=== PATIENT | female | born 1990 | race Caucasian/White ===

== ENCOUNTER 2016-11-04 16:50 | Emergency (ER) | payer OTHER ==
--- NOTE | 2016-11-04 20:00 | ED CLINICAL REPORT ---
Clinical Report - Physicians/Mid Levels [facility] [address] [place] [address] 11/04/2016 16:52 Patient: BETINA HUTSON Arrived- By private vehicle. Historian- patient. HISTORY OF PRESENT ILLNESS Chief Complaint: SKIN RASH. This started several days ago; Wide spread scabby lesions on the face and arms. Pt admits to a history of methamphetamine abuse but sates that she has in the past. It is described as itchy, painful and burning. It has been located on the face, right upper extremity and right lower extremity. Not located on the left upper extremity. It has not been located over the left lower extremity. No cause has been identified. No recent medication or insect bite. Similar symptoms previously: None. REVIEW OF SYSTEMS No fever, chills, sore throat, cough or difficulty breathing. No hoarseness, abdominal pain, nausea, diarrhea or difficulty with urination. No vomiting. PAST HISTORY PCP: None Remote history of methamphetamine abuse. SOCIAL HISTORY Current every day smoker. ADDITIONAL NOTES The nursing notes have been reviewed. PHYSICAL EXAM Vital Signs: 11/04/2016 20:30 BP: 112/69. HR: 96. RR: 20. O2 saturation: 96%. Temp: 99 F. 11/04/2016 17:31 BP: 103/66. HR: 102. RR: 20. O2 saturation: 97%. Temp: 98.6 F. Pain level now: 8/10. ENT: Pharynx normal. CVS: Heart sounds normal. Respiratory: No respiratory distress. Breath sounds normal. Abdomen: Nontender. No organomegaly. Skin: (Pt has 25 to 50 superficial scabbing lesions on a small erythematous base. These are chiefly on the UE R and L with out many other lesions). CLINICAL IMPRESSION Impetigo Cellulitis. INSTRUCTIONS (IMPETIGO IS USUALLY A STREP INFECTION TREATED WITH A PENICILLIN CELLULITIS IS USUALLY IS STAPH AND IS TREATED WITH BACTRIM. BENADRYL FOR ITCH WASH, DRY AND APPLY BACITRACIN OINTMENT). Prescription Medications: Amoxicillin 500 mg tablets: Take 1 orally every 8 hours for 10 days. Dispense thirty (30). No refills. Bactrim DS 800 mg / 160 mg: Take 1 tablet orally every 12 hours for 7 days. Dispense fourteen (14). No refills. Substitution is permissible. BENADRYL 50 MG #20 1 PO Q6H PRN ITCH ONE TUBE OF BACITRACIN OINTMENT. APPLY TO AA BID. Understanding of the discharge instructions verbalized. Follow-up with: [facility], , , [address], , [place], [id number] Follow up in five days if not better. Call for an appointment. (Electronically signed by Juan Monique MD 11/06/2016 23:14)
--- NOTE | 2016-11-04 20:00 | ED CLINICAL REPORT ---
Clinical Report - Physicians/Mid Levels [facility] [address] [place] [address] 11/04/2016 16:52 Patient: BETINA HUTSON Arrived- By private vehicle. Historian- patient. HISTORY OF PRESENT ILLNESS Chief Complaint: SKIN RASH. This started several days ago; Wide spread scabby lesions on the face and arms. Pt admits to a history of methamphetamine abuse but sates that she has in the past. It is described as itchy, painful and burning. It has been located on the face, right upper extremity and right lower extremity. Not located on the left upper extremity. It has not been located over the left lower extremity. No cause has been identified. No recent medication or insect bite. Similar symptoms previously: None. REVIEW OF SYSTEMS No fever, chills, sore throat, cough or difficulty breathing. No hoarseness, abdominal pain, nausea, diarrhea or difficulty with urination. No vomiting. PAST HISTORY PCP: None Remote history of methamphetamine abuse. SOCIAL HISTORY Current every day smoker. ADDITIONAL NOTES The nursing notes have been reviewed. PHYSICAL EXAM Vital Signs: 11/04/2016 20:30 BP: 112/69. HR: 96. RR: 20. O2 saturation: 96%. Temp: 99 F. 11/04/2016 17:31 BP: 103/66. HR: 102. RR: 20. O2 saturation: 97%. Temp: 98.6 F. Pain level now: 8/10. ENT: Pharynx normal. CVS: Heart sounds normal. Respiratory: No respiratory distress. Breath sounds normal. Abdomen: Nontender. No organomegaly. Skin: (Pt has 25 to 50 superficial scabbing lesions on a small erythematous base. These are chiefly on the UE R and L with out many other lesions). CLINICAL IMPRESSION Impetigo Cellulitis. INSTRUCTIONS (IMPETIGO IS USUALLY A STREP INFECTION TREATED WITH A PENICILLIN CELLULITIS IS USUALLY IS STAPH AND IS TREATED WITH BACTRIM. BENADRYL FOR ITCH WASH, DRY AND APPLY BACITRACIN OINTMENT). Prescription Medications: Amoxicillin 500 mg tablets: Take 1 orally every 8 hours for 10 days. Dispense thirty (30). No refills. Bactrim DS 800 mg / 160 mg: Take 1 tablet orally every 12 hours for 7 days. Dispense fourteen (14). No refills. Substitution is permissible. BENADRYL 50 MG #20 1 PO Q6H PRN ITCH ONE TUBE OF BACITRACIN OINTMENT. APPLY TO AA BID. Understanding of the discharge instructions verbalized. Follow-up with: [facility], , , [address], , [place], [id number] Follow up in five days if not better. Call for an appointment. (Electronically signed by Juan Monique MD 11/06/2016 23:14)
--- NOTE | 2016-11-04 20:00 | ED NURSING NOTES ---
Clinical Report - Nurses [facility] [address] [place] [address] 11/04/2016 16:52 Patient: BETINA HUTSON TRIAGE Triage time 17:32. Acuity: LEVEL 3. Chief Complaint: SKIN LESION and . Multiple open and crusted lesions on her face and upper extremities. Anscess around her left eye, left side of face, left side of her neck. C/o SOB. Sx onset yesterday. Also c/o chills. 17:40 11/04/16. SEPSIS SCREEN: Sepsis Screen. Negative (no infection suspected/documented). BRAYDEN COMA SCORE: Brayden Coma Scale: 15- eyes open spontaneously (4); best verbal response- oriented x 4 (5); best motor response- obeys commands (6). --17:40 Pradip Gonzalez R.N. 17:31 11/04/16. BP: 103/66. HR: 102. RR: 20. O2 saturation: 97% on room air. Temp: 98.6 F (oral). Pain level now: 06/07. --17:40 Pradip Gonzalez R.N. Chief Complaint: Also c/o nausea. 17:40. --17:44 Pradip Gonzalez R.N. Weight: 61.2 kg estimated. Height/Length: 61 inches Per Patient. BMI: 25.5. --17:39 Pradip Gonzalez R.N. Medications Citalopram 20 mg q day. QUEtiapine Fumarate Oral 50 mg take 1/2 to 3/4, at bedtime. --17:33 Pradip Gonzalez R.N. TraZODone HCl Oral. --17:33 Pradip Gonzalez R.N. Allergies Vancomycin. (Able to tolerate with Benadryl) --17:32 Pradip Gonzalez R.N. History Arrived by private vehicle. The patient has had muscle aches. ( C/o skin hurting all over). PAST MEDICAL HX: Denies current . SOCIAL HX: Heavy tobacco smoker (cigarette)- less than 1 pack per day. No alcohol use or drug use. ABUSE ASSESSMENT: No report of abuse. --17:40 Pradip Gonzalez R.N. PROBLEMS: Substance Abuse. Mental Illness. Suicide Attempt. Suicidal Ideation. Cellulitis. Narcotic Dependence. Burn. ADD - Attention Deficit Disorder. Anxiety Reaction. Depression. Insomnia. Tetanus Status. Immunizations. LNMP - Last Normal Menstrual Period. --17:33 Pradip Gonzalez R.N. ADDITIONAL SURGERIES: Tonsillectomy. --17:34 Pradip Gonzalez R.N. Interventions ID band on patient. To treatment room. --17:40 Pradip Gonzalez R.N. PHYSICAL ASSESSMENT 17:46 11/04/16. Ambulatory to room. GENERAL / NEURO / PSYCH: Alert. Appears in pain. Oriented X 4. HEENT: Pupils equal, round and reactive to light. Facial swelling present Left side of face, neck, around left eye. Mucous membranes are pink. RESPIRATORY: Respirations not labored. Breath sounds within normal limits. CVS: Capillary refill less than 2 seconds. Pulses within normal limits. GI / : Abdomen nontender. ( nausea). SKIN: Skin is warm and dry. Skin rash present. Skin lesion present. Normal skin turgor. Skin not intact. Drainage. Skin tenderness present. Increased warmth present. Erythema present. --17:46 Pradip Gonzalez R.N. NURSING PROGRESS NOTES 17:46 11/04/16. Patient gowned. Head of bed elevated. Reassurance given. Two patient identifiers checked. Call light placed in reach. Bed placed in lowest position. Brakes of bed on. Patient ready for evaluation- chart flagged. --17:46 Pradip Gonzalez R.N. 19:10. Care transferred and report given (ARBEN Lynne). --19:12 Pradip Gonzalez R.N. DISPOSITION / DISCHARGE Departure time: 2028. Condition at departure: unchanged. The goals identified in the patient's plan of care were met. No learning barriers present. Discharge instructions provided and reviewed with the patient. Reviewed medication(s). Reviewed referral to family practice. Patient verbalized understanding. Written instructions provided in Macedonian. The patient was discharged by the physician. She was discharged home. ( Pt ambulated on discharge, steady on her feet verbalized understanding of discharge instructions and follow up care.). FALL RISK ASSESSMENT: Fall risk assessment completed. No fall risk identified. --20:31 Maged Dye R.N. 20:30 11/04/16. BP: 112/69. HR: 96. RR: 20. O2 saturation: 96%. Temp: 99 F. Pain level now 5/10. --20:31 Maged Dye R.N. Locked/Released at 11/05/2016 2:59 by Maged Dye R.N.
--- NOTE | 2016-11-06 23:14 | ED MED RECONCILIATION SUMMARY ---
Patient: BETINA HUTSON Medication Reconciliation Report [facility] VisitID: [id number] [address] [place] [address] 26y, F Registration Date/Time: 11/04/2016 Weight: 61.2 kg Height/Length: 61 in. BMI: 25.5 ALLERGIES: Vancomycin The patient's Home Medications are listed below: THE FOLLOWING MEDICATIONS NEED TO BE RECONCILED: Citalopram 20 mg q day QUEtiapine Fumarate Oral 50 mg take /2 to 3/4, at bedtime TraZODone HCl Oral The source(s) of the original Home Medication information: Not obtained. The following Medications were given to the patient in the Emergency Department: None. The following Medications were prescribed to the patient: BENADRYL 50 MG #20 1 PO Q6H PRN ITCHONE TUBE OF BACITRACIN OINTMENT. APPLY TO AA BID. -- Juan Monique MD Amoxicillin 500 mg tablets: Take 1 orally every 8 hours for 10 days. Dispense thirty (30). No refills. -- Juan Monique MD Bactrim DS 800 mg / 160 mg: Take 1 tablet orally every 12 hours for 7 days. Dispense fourteen (14). No refills. Substitution is permissible. -- Juan Monique MD
--- NOTE | 2016-11-06 23:14 | ED MED RECONCILIATION SUMMARY ---
Patient: BETINA HUTSON Medication Reconciliation Report [facility] VisitID: [id number] [address] [place] [address] 26y, F Registration Date/Time: 11/04/2016 Weight: 61.2 kg Height/Length: 61 in. BMI: 25.5 ALLERGIES: Vancomycin The patient's Home Medications are listed below: THE FOLLOWING MEDICATIONS NEED TO BE RECONCILED: Citalopram 20 mg q day QUEtiapine Fumarate Oral 50 mg take /2 to 3/4, at bedtime TraZODone HCl Oral The source(s) of the original Home Medication information: Not obtained. The following Medications were given to the patient in the Emergency Department: None. The following Medications were prescribed to the patient: BENADRYL 50 MG #20 1 PO Q6H PRN ITCHONE TUBE OF BACITRACIN OINTMENT. APPLY TO AA BID. -- Juan Monique MD Amoxicillin 500 mg tablets: Take 1 orally every 8 hours for 10 days. Dispense thirty (30). No refills. -- Juan Monique MD Bactrim DS 800 mg / 160 mg: Take 1 tablet orally every 12 hours for 7 days. Dispense fourteen (14). No refills. Substitution is permissible. -- Juan Monique MD
--- NOTE | 2016-11-06 23:14 | ED DISCHARGE INSTRUCTIONS ---
Patient: BETINA HUTSON General Instructions [facility] VisitID: [id number] [address], [place] [address] 26y, F Registration Date/Time: 11/04/2016 Impetigo Cellulitis. INSTRUCTIONS (IMPETIGO IS USUALLY A STREP INFECTION TREATED WITH A PENICILLIN CELLULITIS IS USUALLY IS STAPH AND IS TREATED WITH BACTRIM. BENADRYL FOR ITCH WASH, DRY AND APPLY BACITRACIN OINTMENT). Prescription Medications: Amoxicillin 500 mg tablets: Take 1 orally every 8 hours for 10 days. Dispense thirty (30). No refills. Bactrim DS 800 mg / 160 mg: Take 1 tablet orally every 12 hours for 7 days. Dispense fourteen (14). No refills. Substitution is permissible. BENADRYL 50 MG #20 1 PO Q6H PRN ITCH ONE TUBE OF BACITRACIN OINTMENT. APPLY TO AA BID. Understanding of the discharge instructions verbalized. Follow-up with: [facility], , , [address], , [place], [address] Follow up in five days if not better. Call for an appointment. ADDITIONAL INFORMATION Impetigo Impetigo is the name for a bacterial infection of the skin. It is common in children. It may start as an infected insect bite or scratch and spread rapidly to other areas of the body. It is contagious and can be given to other children by touching. The sores usually have a kirk[place] brown crust and grow gradually larger as they spread. Impetigo requires treatment with an antibiotic. Home care The following guidelines will help you care for your infection at home: Trim fingernails and cover sores with an adhesive bandage if necessary to prevent scratching. Picking at the sores may leave a scar. Wash hands (yours and your child's) often. This will avoid spreading the infection to other parts of the body and to other children. Do not let your child share washcloths, towels, pillows, sheets, or clothes with others. Wash these items in hot water before using again. The sores should be washed three times a day with soap and water. Use a washcloth to scrub the sores and remove the crust. Then apply an antibacterial cream as directed. If antibiotic pills or liquid was prescribed, be sure your child takes all the medicine until it is gone. Your child should stay out of school until completing two full days of antibiotic treatment. Use acetaminophen for fever, fussiness or discomfort, unless another medicine was prescribed. In infants over six months of age, you may use ibuprofen instead of acetaminophen. If your child has chronic liver or kidney disease or has ever had a stomach ulcer or GI bleeding, talk with your doctor before using these medicines. (Aspirin should never be used in anyone under 18 years of age who is ill with a fever. It may cause severe liver damage. Follow-up care Follow up with your doctor or this facility if the sores continue to spread after three days of treatment. It will take about 710 days to heal completely. When to seek medical care Get prompt medical attention if any of the following occur: Increasing number of sores or spreading areas of redness after two days of treatment with antibiotics Increasing swelling, or pain Fever of 100.4F (38C) oral or 101.4F (38.5C) rectal or higher, not better with fever medication Increased amounts of fluid or pus coming from the sores Unusual drowsiness, weakness, or change in behavior Loss of appetite or vomiting Cellulitis You have an infection of the skin known as cellulitis. This usually starts with a scrape, cut, insect bite, blister or other opening in the skin which becomes infected. This is a serious condition. It must be watched closely to be sure the infection is not spreading. With antibiotic treatment, the size of the red area will gradually shrink in size until the skin returns to normal. This will take 7-10 days. The red area should never increase in size once the antibiotic medicine has been started. Occasionally, an infection will be resistant to one antibiotic and another one will have to be used. Home Care: 1) Limit the use of the affected part, since excess movement can cause the infection to spread. 2) If the infection is on your leg, walk as little as possible during the first few days of the treatment. Keep your leg elevated while sitting. This will reduce swelling. 3) Take all of the antibiotic medicine exactly as directed until it is gone. Be careful not to miss any doses, especially during the first seven days. Follow Up with your doctor or this facility as directed. Check the infected area daily for the warning signs listed below. Get Prompt Medical Attention if any of the following occur: -- Spreading area of redness -- Increasing swelling or pain -- Appearance of pus or drainage -- Fever over 100.4 F (38.0 C) oral, or over 101.4 F (38.6 C) rectal, after two days on antibiotics You have been given the following additional information: Impetigo (Child) Cellulitis (Electronically signed by Juan Monique MD 11/06/2016 23:14)
--- NOTE | 2016-11-06 23:14 | ED MAR SUMMARY ---
..... Medication Administration Record [facility] [address] [place], [place] [id number] Patient: BETINA HUTSON Visit ID: [id number] 26y, F Weight: 61.2 kg Height/Length: 61 in BMI: 25.5 ALLERGIES: Vancomycin
--- NOTE | 2016-11-06 23:14 | ED MAR SUMMARY ---
..... Medication Administration Record [facility] [address] [place], [place] [id number] Patient: BETINA HUTSON Visit ID: [id number] 26y, F Weight: 61.2 kg Height/Length: 61 in BMI: 25.5 ALLERGIES: Vancomycin
== END 2016-11-04 20:29 | disposition home or self-care (01) ==
LOC: ED SRH 16:50
DX: L01.00 Impetigo, unspecified (principal); L03.113 Cellulitis of right upper limb; Z79.899 Other long term (current) drug therapy; F17.210 Nicotine dependence, cigarettes, uncomplicated; Z88.1 Allergy status to other antibiotic agents